=== PATIENT | female | born 1990 | race Caucasian/White ===

== ENCOUNTER 2017-10-23 08:00 | Inpatient (IN) ==
--- NOTE | 2017-10-23 08:37 | OB/GYN History & Physical ---
Date of Encounter: 10/23/17 Time of Encounter: 08:34 Assessment and Plan (1) 39 weeks gestation of Current visit: Yes Status: Acute Patient 39 weeks 0 days gestation. Here for induction. Seen in office yesterday and was 4.5 cm. We will start Pitocin IV to induce labor. Epidural when requested. Anticipate . (2) Tobacco abuse Current visit: Yes Status: Acute Patient currently smokes one pack of cigarettes per day. We will provide the patient with a nicotine patch. History of Present Illness HPI: Ms. Aguila is a 27 year old female presenting to labor and delivery for induction of her labor. She is 39 weeks 0 days. Patient was seen yesterday in the office and was dilated to 4.5 cm. Patient denies any vaginal cramping or bleeding. Denies any leakage of fluid. Denies any fevers, chest pain or shortness of breath. Denies any urinary symptoms. Patient is group b negative. Patient is Treponema and HIV negative. Rubella immune. Blood type A - with no antibodies. Patient has had no complications with this but does abuse tobacco. She smokes approximately one pack of cigarettes per day. Patient denies any other concerns or complications throughout this . Patient had one spontaneous . Past Med Surg Social Fam HX - Past Medical History Medical history: no medical history Psychiatric history: depression - Past Surgical History Surgical History: non-contributory - Social History Smoking Status: Current every day smoker Packs per day: 0.5 Smokeless Tobacco Status: No Alcohol use: none Drug use: none - Family History Mother Adopted: No Age: 49 Living Status: Still Living Hx Family Cardiac Disorders: No Hx Family Respiratory Disorders: No Hx Family Cancer: No Hx Family GI Disorders: No Hx Family Genitourinary Disorders: No Hx Family Endocrine Disorder: No Hx Family Musculoskeletal Disorders: No Hx Family Neuromuscular Disorders: No Hx Family Neurologic Disorders: No Hx Family HEENT Disorders: No Hx Family Autoimmune Disorders: No Hx Family Reproductive Disorders: No Hx Family Psychosocial Disorders: No Hx Family Medical Disorders: No Obstetrical History - Pregnancies : 3 Para: 1 Term: 1 : 0 Ab's: 1 Livin Medications and Allergies Xdi327/Iron Fumarate/FA/Dss [ 19 Tablet] 1 each PO DAILY #30 tablet 07/15 [Rx] 3 Allergy/AdvReac Type Severity Reaction Status Date / Time No Known Allergies Allergy Verified 10/23/17 08:24 Review of System OB All systems PM: reviewed and no additional remarkable complaints except as stated Exam - Constitutional Constitutional: well developed, well nourished, no acute distress, average body habitus - HEENT HEENT: Normocephaly, Mucus Membranes Moist - Neck Neck exam: full ROM, normal inspection - Lungs Respiratory exam: CTAB - Cardiovascular Cardiovascular exam: RRR - Abdomen Abdomen: Present: bowel sounds normal, gravid, non tender - Extremities Extremities exam: full ROM, warm - Cervix Dilation: 4 (4.5cm in office yesterday) - Uterus Uterus exam: Present: enlarged (gravid), normal contour - Anus/Rectum Anus/Rectum: Present: normal perianal skin Results Result Diagrams: 10/23/17 08:30 All other labs normal. - VTE Reasons for not Prescribing Prophylaxis: Treatment not Indicated - Low risk for VTE
[2017-10-23 08:42] LABS: Basophils % 0.2 %; Eosinophils # 0.1 K/mcL (0.0-0.6); Eosinophils % 0.6 %; Hematocrit 37.9 % (35.3-44.9); Hemoglobin 12.8 g/dL (11.5-15.4); Immature Granulocytes % 0.6 % (0-4); Lymphocytes # 2.4 K/mcL (0.6-4.6); Lymphocytes % 17.2 %; Mean Corpuscular HGB Conc 33.8 g/dL (31.6-35.5); Mean Platelet Volume 12.4 fL (9.4-12.4); Monocytes # 0.5 K/mcL (0.0-1.3); Neutrophils # 10.6 K/mcL (1.6-8.9); Platelet Count 160 K/mcL (140-400); Red Blood Count 4.26 M/mcL (3.82-4.97); Segmented Neutrophils % 77.4 %
[2017-10-23] MEDS ORDERED: Oxytocin 20 units/ LR 1000 mL 20 UNIT/1,000 ML BAG IVC SCH ×2 (08:45→14:11)
[2017-10-23] MEDS ORDERED: Ringers Solution, Lactated 1,000 ML IVC SCH (09:00)
[2017-10-23] MEDS ORDERED: Famotidine 20 MG/2 ML VIAL IVP ONE (09:48)
--- NOTE | 2017-10-23 10:14 | Anesthesia Evaluation PreOp ---
Date of Encounter: 10/23/17 Time of Encounter: 09:56 - Past History Planned Operation: labor epidural Cardiac History: Denies any Significant Hx Pulmonary History: Smoker (1/2 ppd, smoked for 3 years.) DYNAMO REPAIRER History: Denies Any Significant HX, Other (reports depression with last delivery.) Other Medical History: Denies Any Significant HX Anesthesia History: No Prior Anesthetic Complications, Past Anesthesia (skin graft right leg under GA as child with no problems. Previous epidural with no problems. No FHAP.) : Yes Alcohol Use: none Drug use: none Medications and Allergies Gcl316/Iron Fumarate/FA/Dss [ 19 Tablet] 1 each PO DAILY #30 tablet 07/15 [Rx] 3 Allergy/AdvReac Type Severity Reaction Status Date / Time No Known Allergies Allergy Verified 10/23/17 08:24 - Meds/Allergy Pre-op Review Medications Reviewed: Yes Allergies Reviewed: Yes Beta Blockers on Current Med List: No Anesthesia Results - Labs 10/23/17 08:30 Anesthesia Exam VSS and FHTs stable Height: 5'0" Weight: 73 kg NPO (# of Hours): 3 hours Pain Scale: 0 Pain Scale Used: Numeric (1 - 10) - HEENT Pupil (Motor): Pupils equal Mallampati: II Teeth: Normal Oral Opening: Greater than 3 - DYNAMO REPAIRER LOC: Oriented DYNAMO REPAIRER Motor: Normal RUE, Normal LUE, Normal RLE, Normal LLE, Normal Face DYNAMO REPAIRER Sensory: Normal: RUE, LUE, RLE, LLE, Face - Cardiac Rhythm: Regular - Pulmonary Breath Sounds: bilateral Clear Respiratory Effort: Symmetrical Anesthesia Assess/Plan ASA Score: 2 Modified Montgomery Scale for Level of Consciousness: Cooperative, oriented, and tranquil Anesthetic Plan: Regional Monitoring Plan: Standard Monitors
[2017-10-23 10:52] LABS: Amphetamine Screen,Urine Negative ng/mL (Cutoff=1000); Barbiturate Screen,Urine Negative ng/mL (Cutoff=200); Benzodiazepines Screen,Urine Negative ng/mL (Cutoff=200); Cannabinoid Screen,Urine Negative ng/mL (Cutoff = 50); Cocaine Screen,Urine Negative ng/mL (Cutoff= 300); Opiate Screen,Urine Negative ng/mL (Cutoff=300); Phencyclidine Screen,Urine Negative ng/mL (Cutoff=25)
[2017-10-23] MEDS ORDERED: *HR* FentaNYL (PF) 100 MCG/2 ML VIAL EP ONE (11:42)
[2017-10-23] MEDS ORDERED: Bupivacaine-MPF 0.25% 10 ML VIAL EP ONE (11:42)
[2017-10-23] MEDS ORDERED: Epidural Premix (fent/bupiv) 110 ML EP SCH (11:45)
[2017-10-23] MEDS ORDERED: *HR* Nalbuphine 20 MG/ML AMPUL IVP ONE (12:05)
--- NOTE | 2017-10-23 12:07 | OB Labor Progress Note ---
Date of Encounter: 10/23/17 Time of Encounter: 12:05 Labor Progress Note - Subjective Subjective: Pt reports pain 5-6/10 with contractions. She would like Nubain. - Cervix Cervix: 4-5/80/-2 - Heart Tones Heart Tones: Category I - Gary Gary: Q 2.5 minutes - Interventions Interventions: AROM for large amount clear fluid, IUPC placed - Plan Plan: Continue to monitor. Nubain 5mg now for pain. Anticipate .
[2017-10-23] MEDS ORDERED: *HR* Nalbuphine 20 MG/ML AMPUL ONE (12:10)
[2017-10-23] MEDS ORDERED: *HR* FentaNYL (PF) 100 MCG/2 ML VIAL ONE (12:44)
[2017-10-23] MEDS ORDERED: Bupivacaine-MPF 0.25% 10 ML VIAL ONE (12:44)
[2017-10-23] MEDS ORDERED: Epidural Premix (fent/bupiv) 110 ML EP ONE (12:44)
[2017-10-23] MEDS ORDERED: Lidocaine 1% 20 ML MDV ONE (13:38)
--- NOTE | 2017-10-23 13:42 | Anesthesia Procedures ---
Date of Encounter: 10/23/17 Time of Encounter: 12:45 Procedures: Anesthesia - Epidural/Spinal Patient ID/Chart reviewed: Yes Patient examined: Yes OB Eval: Gestational age: 39 OB Eval: : 3 OB Eval: Hx Para: 1 OB Eval: Dilated at (cm): 5 OB Eval: Contractions: Non-stressed pattern Consent Obtained: Yes Supplemental Oxygen: None/Room Air Site Prep: Aseptic Technique, Sterile prep and drape, Povidone-Iodine 1% Patient position: upright Local Anesthetic: Lidocaine 1% Amount of Local Anesthetic used: 3 Touhy Needle Gauge: 18 Touhy Needle Depth (cm): 4 Catheter Depth at Skin (cm): 7 Test Dose (1.5% Lido + Epi): Volume given (mls): 3 Test Dose Result: Negative Loading Dose: 0.25% Marcaine (mls): 8 Loading Dose: Fentanyl (mcg): 100 Loading Dose Administered: Thru Catheter Infusion Med: 0.125% Bupivacaine w/ 2 mcg/ml Fentanyl Infusion Rate (mls/hr): [address]: Tegaderm, Tape Interspace Used: L3-L4 Loss of Resistance (KEN): Yes Blood: No CSF: No Paresthesia: No Vitals + FHT's: 3 Vital Signs Time 1245 1305 1310 1315 BP 137/75 146/69 149/80 138/63 Pulse 86 95 86 92 FHTs 120 115 115 120
--- NOTE | 2017-10-23 13:59 | OB/GYN Procedure Note ---
Delivery - Delivery Date: 10/23/17 Provider: Isha Piper Intrapartum events: none Delivery induction: oxytocin Delivery augmentation: rupture of membranes Delivery monitor: external FHT, internal uterine Anesthesia: epidural Estimated Blood Loss: 350 - Infant (s) Infant A Delivery Date: 10/23/17 Infant Delivery Time: 13:27 Presentation: vertex Position: OA Route of delivery: Gender: Female Viability: Viable Pounds: 6 Ounces: 8 Weight Gram: 2.95 kg at 1 minute: 9 at 5 mins: 9 Shoulder Dystocia: not encountered Specimens collected: cord blood Placenta: spontaneous Cord: 3 umbilical vessels - Repair Episiotomy: none Laceration Description: Perineal - 1st Degree - Complications Delivery complications: none Delivery comments: Pt progressed rapidly to complete and +2. She pushed effectively to for viable female weighing 6lbs 8oz with apgars 9 at one minute and 9 at five minutes. After pulsations ceased the cord was clamped and cut and the placenta delivered spontaneous and intact. A small first degree laceration was repaired with 2-0 Chromic and bilateral labial lacerations were hemostatic and not repaired. EBL 350ml. Mother and baby stable in DR following procedure. - Disposition Mom disposition: stable in LDR [place] disposition: stable in LDR
[2017-10-23] MEDS ORDERED: Rho Immune Globulin 1,500 UNIT SYRINGE IM PRN (14:11)
[2017-10-23] MEDS ORDERED: Benzocaine/Menthol 56 GM AEROSOL SPRAY TP PRN (14:11)
[2017-10-23] MEDS ORDERED: Lanolin 7 G OINT...G. TP PRN (14:11)
[2017-10-23] MEDS ORDERED: Acetaminophen 325 MG TABLET PO PRN (14:11)
[2017-10-23] MEDS ORDERED: Measles/Mumps/Rubella Vacc 0.5 ML VIAL SQ PRN (14:11)
[2017-10-23] MEDS: Ibuprofen 600 MG TABLET PO PRN ×2 (14:20→20:13)
[2017-10-24] MEDS: Ibuprofen 600 MG TABLET PO PRN (03:47)
[2017-10-24 08:33] VITALS: BP 120/79
[2017-10-24] MEDS ORDERED: Prenatal Vit/FA 1 EACH TABLET PO SCH (09:00)
--- NOTE | 2017-10-24 11:09 | Discharge Summary ---
Date of Encounter: 10/24/17 Time of Encounter: 11:07 - Discharge Diagnosis (1) Vaginal delivery Priority: Primary Status: Acute Comments: Continue routine care discharge home today follow up in 4-6 weeks - Discharge Medications Prescriptions: Ibuprofen [Motrin] 600 mg PO Q6HR PRN #60 tablet PRN Reason: Cramping Home Medications: Vhi495/Iron Fumarate/FA/Dss [ 19 Tablet] 1 each PO DAILY #30 tablet 07/15 [Rx] Benzocaine/Menthol [place] [Dermoplast [place]] 1 appl TP QID PRN aerosol 10/24/17 [Rx] Ibuprofen [Motrin] 600 mg PO Q6HR PRN #60 tablet 10/24/17 [Rx] Allergies/Adverse Reactions: 3 Allergy/AdvReac Type Severity Reaction Status Date / Time No Known Allergies Allergy Verified 10/23/17 08:24 Data Procedures and tests throughout hospitalization: Laboratory Tests 10/23/17 10/23/17 10/23/17 08:30 08:30 14:06 WBC 13.7 H RBC 4.26 Hgb 12.8 Hct 37.9 MCV 89.0 MCH 30.0 MCHC 33.8 RDW 13.0 Plt Count 160 MPV 12.4 Immature Gran % 0.6 Seg Neutrophils % 77.4 Lymphocytes % 17.2 Monocytes % 4.0 Eosinophils % 0.6 Basophils % 0.2 Neutrophils # 10.6 H Lymphocytes # 2.4 Monocytes # 0.5 Eosinophils # 0.1 Basophils # 0.0 Urine Opiates Screen Negative Ur Barbiturates Screen Negative Ur Phencyclidine Scrn Negative Ur Amphetamines Screen Negative U Benzodiazepines Scrn Negative Urine Cocaine Screen Negative U Marijuana (THC) Screen Negative Screen NEGATIVE Baby's Blood Type A RH POSITIVE Mother's Blood Type A RH NEGATIVE Rhogam Indicated YES Rhogam Req for Mother 1 Labs on day of discharge: Labs from last 24 hours 10/23/17 14:06 Screen NEGATIVE Baby's Blood Type A RH POSITIVE Mother's Blood Type A RH NEGATIVE Rhogam Indicated YES Rhogam Req for Mother 1 Date of admission: 10/23/17 08:05 Primary care physician: Yazan Manuel MD Consults: 10/23/17 14:11 Consult to Field Service Analyst [CONS] Routine Comment: Vaginal delivery, consult needed Discharging clinician: Lelia Dill Anticipated date of discharge: 10/24/17 - Patient Status Disposition: Home, Self-Care Condition: Good Functional capacity at discharge: independent ambulation - Discharge Instructions Follow Up With: Yazan Manuel MD [Primary Care Provider] - Isha Piper CNM [Non-Partnered Physician] - - Diet and Activity Activity: increase activity as tolerated Diet: regular diet Hospital Course Delivery: Episiotomy: none Laceration: 1st degree Other procedures: none complications: none Discharge diagnosis: IUP at term delivered baby: female (bottle feeding) Time Attestation: Total time spent providing and/or coordinating discharge services: Time Spent: Less than 30 minutes Exam - Constitutional Vitals: Temp Pulse Resp BP Pulse Ox 98.2 F 72 16 120/79 98 10/24/17 07:55 10/24/17 07:55 10/24/17 07:55 10/24/17 07:55 10/24/17 07:55 General appearance IM: A&O X 3, pleasant, answers questions appropriately - Respiratory Respiratory exam: Present: CTAB - Cardiovascular Cardiovascular exam IM: Present: RRR, +S1, +S2 - GI/Abdominal GI/Abdominal exam IM: normal bowel sounds - Uterine Tone: Firm Uterus Position: 1 Finger Below Umbilicus, Midline - Extremities Exam Extremities exam IM: Present: full ROM, normal inspection - Neurological Exam Neurological exam: reflexes normal - Other Additional findings: lochia is light
== END 2017-10-24 16:34 | disposition home or self-care (01) | DRG 560 ==
LOC: 1NENULAB 08:05 → 1NENUOBS 16:28
PROVIDERS: ADMIT Registered Nurse; ATTEND Registered Nurse